=== PATIENT | male | born 1985 | race Hispanic/Latino ===

== ENCOUNTER 2018-09-17 09:11 | Outpatient (CLI) | payer OTHER ==
--- NOTE | 2018-09-17 09:46 | ULT ---
FRight upper quadrant ultrasound. HISTORY: Elevated liver enzymes. Multiple longitudinal and transverse images of the right upper quadrant of the abdomen is obtained us ing multi hertz curvilinear transducer. Real-time, color flow and spectral waveform Doppler analysis demonstrates fibrofatty changes seen in the liver. No definite evidence of hepatic parenchymal masses or lesions seen. Normal hepatopedal flow seen in the portal system. An area of focal fatty sparing seen adjacent to the gallbladder. The common bile duct is of is upper limits of normal in size measuring 7.4 mm. No evidence of gallstones seen. The pancreas is suboptimally visualized due to overlying bowel gas. The right kidney is unremarkable with no evidence of hydronephrosis. Vjre-ni-sevo measures 11.8 cm. IMPRESSION: 1.: Fibrofatty changes seen in the liver. 2: Mildly increased common bile duct size.
== END 2018-09-17 09:12 | disposition home or self-care (01) ==
LOC: BICULT 09:11
PROVIDERS: ATTEND Internal Medicine
DX: R74.0 Nonspecific elevation of levels of transaminase and lactic acid dehydrogenase [LDH] (principal)
CPT/HCPCS: 76705

== ENCOUNTER 2019-05-28 09:54 | Outpatient (CLI) | payer OTHER ==
--- NOTE | 2019-05-28 10:35 | RAD ---
Exam:3 views left foot HISTORY: Fall. Pain. Injury. Swelling COMPARISON: 04/20/2017 FINDINGS: Old healed fifth metatarsal fracture, unchanged. No acute fractures. Lisfranc alignment is maintained. Preserved joint spaces. Stable appearance of the soft tissues. IMPRESSION: No acute fracture.
== END 2019-05-28 09:55 | disposition home or self-care (01) ==
LOC: BICRAD 09:54
PROVIDERS: ATTEND Physician Assistant
DX: S99.922A Unspecified injury of left foot, initial encounter (principal); W19.XXXA Unspecified fall, initial encounter

== ENCOUNTER 2019-07-02 07:29 | Outpatient (CLI) | payer OTHER ==
--- NOTE | 2019-07-02 08:04 | ULT ---
GALLBLADDER ULTRASOUND: HISTORY:Fatty liver COMPARISON: 09/17/2018 FINDINGS: The liver demonstrates changes of fatty infiltration with focal sparing adjacent to the gallbladder b ut without mass or intrahepatic biliary ductal dilatation. No gallstones, gallbladder wall thickening or pericholecystic fluid are seen. The right kidney and visualized portions of the pancreas are normal. The common duct [id number] in diameter. No free fluid is seen in the Sharpe's pouch. IMPRESSION: Fatty liver.
== END 2019-07-02 07:30 | disposition home or self-care (01) ==
LOC: BICULT 07:29
PROVIDERS: ATTEND Internal Medicine
DX: K76.0 Fatty (change of) liver, not elsewhere classified (principal)
CPT/HCPCS: 36415; 76705; 80061; 82306; 84443

== ENCOUNTER 2019-07-09 14:19 | Emergency (ER) | payer OTHER ==
[2019-07-09] MEDS ORDERED: Fluorescein Opthalmic Strip ONE (14:55)
[2019-07-09] MEDS ORDERED: Bupivacaine 0.5% 10 ML VIAL ONE (14:58)
[2019-07-09] MEDS ORDERED: Proparacaine 0.5% Opth 15 ML BOT ONE (15:06)
[2019-07-09] MEDS ORDERED: PROVENTIL INHALER 6.7 G (200 INHALATIONS) ONE (15:06)
--- NOTE | 2019-07-09 15:15 | CT ---
CT Brain WO Con: 07/09/2019 2:59 PM CLINICAL HISTORY: Blurry vision within the right eye. IMAGING TECHNIQUE: Multiple CT images were obtained of the brain without IV contrast. COMPARISON: January 02, 2016 FINDINGS: Brain: No acute infarct or hemorrhage is evident. No midline shift. Ventricles: Normal. No hydrocephalus. Skull: Intact. Visualized Paranasal sinuses: Clear. Mastoid air cells:Clear. Extracranial soft tissues:Normal. IMPRESSION: No acute intracranial abnormality.
[2019-07-09 15:32] LABS: #Basophils 0.1 thou/uL (0.0-0.2); #Eosinphils 0.4 thou/uL (0.0-0.7); #Lymphocytes 2.7 thou/uL (1.20-3.40); #Monocytes 0.9 thou/uL (0.11-0.59); #Neutrophils 6.5 thou/uL (1.40-6.50); %Basophils 1.1 % (0.0-1.0); %Eosinophils 3.9 % (0.0-10.0); %Lymphocytes 25.6 % (21.0-51.0); %Monocytes 8.1 % (0.0-10.0); %Neutrophils 61.3 % (42.0-75.0); Hemoglobin 16.9 g/dL (14.0-18.0); Mean Corpuscular HGB CONC 33.3 g/dL (32.0-36.0); Mean Corpuscular Hemoglobin 30.4 pg (27.0-31.0); Mean Corpuscular Volume 91.3 fL (78.0-98.0); Mean Platelet Volume 10.7 fL (7.4-10.4); Platelet Count 197 thou/uL (130-400); RBC Distribution Width 13.4 % (11.5-14.5); Red Blood Cell (RBC) Count 5.57 mill/uL (4.70-6.10); White Blood Cell (WBC) Count 10.7 thou/uL (4.8-10.8)
[2019-07-09 15:56] LABS: ALT (SGPT) 73 U/L (8-55); AST (SGOT) 37 U/L (5-34); Albumin 4.3 g/dL (3.5-5.0); Alkaline Phosphatase 94 U/L (40-110); Anion Gap 13 mmol/L (10-20); BUN (Urea Nitrogen) 9 mg/dL (8.9-20.6); Bilirubin, Total 0.5 mg/dL (0.2-1.2); Calc. Creatinine Clearance 0 mL/min (70-130); Carbon Dioxide 25 mmol/L (22-29); Chloride 104 mmol/L (98-107); Estimated GFR-MDRD 83; Globulin 2.7 g/dL (2.4-3.5); Glucose 129 mg/dL (70-105); Sodium 138 mmol/L (136-145)
== END 2019-07-09 16:07 | disposition home or self-care (01) ==
LOC: ERS 14:19
DX: H53.8 Other visual disturbances (principal); E03.9 Hypothyroidism, unspecified; J45.909 Unspecified asthma, uncomplicated; F90.9 Attention-deficit hyperactivity disorder, unspecified type; Z79.899 Other long term (current) drug therapy
CPT/HCPCS: 36415; 70450; 80053; 85025; 85652; 86140; 87070; J3490

== ENCOUNTER 2020-07-04 12:28 | Outpatient (CLI) | payer OTHER ==
--- NOTE | 2020-07-04 12:51 | RAD ---
XR Lumbar Spine 2 Or 3 View HISTORY: Lumbar radicular pain, low back pain radiating into left hip FINDINGS: Neutral, flexion and extension lateral views of the lumbar spine demonstrate mild degenerative change s without evidence of fracture subluxation or change in alignment on flexion or extension.
== END 2020-07-04 12:29 | disposition home or self-care (01) ==
LOC: BICRAD 12:28
PROVIDERS: ATTEND Nurse Practitioner Family
DX: M47.26 Other spondylosis with radiculopathy, lumbar region (principal)
CPT/HCPCS: 72100; 72110

== ENCOUNTER 2020-12-02 10:16 | Outpatient (CLI) | payer OTHER | END 2020-12-02 10:17 | disposition home or self-care (01) | LOC: DTY/OP 10:16 → EEVIPCON 10:16 → DTY/OP 10:17 | PROVIDERS: ATTEND Specialist | DX: Z01.818 Encounter for other preprocedural examination (principal); E66.01 Morbid (severe) obesity due to excess calories | CPT/HCPCS: 97802 ==